=== PATIENT | female | born 1965 ===

== ENCOUNTER 2020-07-25 13:16 | Emergency (ER) | payer OTHER ==
[2020-07-25] MEDS ORDERED: Sodium Chloride 0.9% 10 ML Syringe FLUSH PRN (13:41)
[2020-07-25] MEDS ORDERED: Ondansetron 4 MG/2 ML SDV IV ONE ×2 (13:42→15:12)
[2020-07-25] MEDS ORDERED: Sodium Chloride 0.9% 1,000 ML IV ONE (13:42)
[2020-07-25] MEDS ORDERED: Dexamethasone 4 MG/ML SDV IVPUSH ONE (13:52)
[2020-07-25] MEDS ORDERED: Meclizine 12.5 MG Tab PO ONE ×2 (13:53→15:12)
[2020-07-25 14:34] LABS: ANION GAP 17.1 mEq/L (7-13); CHLORIDE,CL 100 mmol/L (98-107); SODIUM,NA 135 mmol/L (136-145)
--- NOTE | 2020-07-25 15:23 | EDM.PDOC ---
ED HPI GENERAL MEDICAL PROBLEM - General Chief Complaint: Neuro Symptoms/Deficits Stated Complaint: VOMMITING WEAKNESS DIZZIE CANT BARLY WALK Time Seen by Provider: 07/25/20 13:50 Source of Information: Reports: Patient, Family, Old Records, RN, RN Notes Reviewed History Limitations: Reports: No Limitations - History of Present Illness INITIAL COMMENTS - FREE TEXT/NARRATIVE: Pt presents to ER with c/o sudden onset last night of "room spin" dizziness. She did not sleep well, and woke this morning with worsening dizziness and severe nausea and vomiting associated with the recurring dizzy episodes. Pt denies headache. She did feel at times that her vision was not "quite right" and states she looked at her daughter saw her with three eyebrows. Denies Hx of ear problems, ear pain, or drainage. She did feel her left ear had a new and unusual pressure last evening. Denies fever, chills, neck pain, fall, or head injury. Onset: Sudden Duration: Constant Quality: Reports: Other (Denies pain) Severity: Severe Improves with: Reports: Immobilization (Laying still with eyes closed.) Worsens with: Reports: Movement Associated Symptoms: Reports: No Other Symptoms - Related Data Allergies Allergy/AdvReac Type Severity Reaction Status Date / Time No Known Allergies Allergy Verified 07/25/20 13:46 Home Meds: Home Meds Citalopram [Citalopram Hbr] 10 mg PO DAILY 07/23/13 [History] Estradiol/Norethindrone Acet [Estradiol-Noreth 0.5-0.1 MG] 1 tab PO DAILY 07/25/20 [History] lisinopriL [Lisinopril] 20 mg PO DAILY 07/25/20 [History] Past Medical History - Past Health History Medical/Surgical History: Denies Medical/Surgical History HEENT History: Reports: Sinusitis, Other (See Below) Other HEENT History: deviated septum Cardiovascular History: Reports: Hypertension Respiratory History: Reports: None Gastrointestinal History: Reports: None Genitourinary History: Reports: None VP SITE History: Reports: Musculoskeletal History: Reports: None Neurological History: Reports: None Psychiatric History: Reports: Anxiety, Depression Endocrine/Metabolic History: Reports: None Hematologic History: Reports: None Immunologic History: Reports: None Oncologic (Cancer) History: Reports: None Dermatologic History: Reports: None - Infectious Disease History Infectious Disease History: Reports: None - Past Surgical History Head Surgeries/Procedures: Reports: None Social & Family History - Family History Family Medical History: No Pertinent Family History - Tobacco Use Tobacco Use Status *Q: Current Every Day Tobacco User Years of Tobacco use: 30 Packs/Tins Daily: 0.5 - Caffeine Use Caffeine Use: Reports: Coffee, Soda - Recreational Drug Use Recreational Drug Use: No - Living Situation & Occupation Living situation: Reports: , with Family Occupation: Employed ED ROS GENERAL - Review of Systems Review Of Systems: Comprehensive ROS is negative, except as noted in HPI. ED EXAM, DIZZINESS - Physical Exam Exam: See Below Exam Limited By: No Limitations General Appearance: Alert, No Apparent Distress, Anxious, Obese Eye Exam: Bilateral Eye: EOMI, Nystagmus (Lateral gaze), PERRL Nystagmus: worsens with head to R, reproducible, short duration Ears: Normal External Exam, Normal Canal, Hearing Grossly Normal, Normal TMs. No: Hearing Loss, Auricular Erythema, Auricular Tenderness, Mastoid Swelling, Mastoid Tenderness, Canal Discharge, Canal Material, Canal Swelling, TM Bulging, TM Dullness, TM Erythema, TM Blood, TM Fluid, TM Perforation, TM Vesicles Nose: Normal Inspection, Normal Mucosa, No Blood Throat/Mouth: Normal Inspection, Normal Lips, Normal Teeth, Normal Gums, Normal Oropharynx, Normal Voice, No Airway Compromise Head Exam: Atraumatic, Normocephalic Neck: Normal Inspection, Supple, Non-Tender, Full Range of Motion. No: Carotid Bruit, Lymphadenopathy (L), Lymphadenopathy (R) Respiratory/Chest: No Respiratory Distress, Lungs Clear, Normal Breath Sounds, No Accessory Muscle Use, Chest Non-Tender Cardiovascular: Normal Peripheral Pulses, Regular Rate, Rhythm, No Edema, Other (Not orthostatic) GI/Abdominal: Normal Bowel Sounds, Soft, Non-Tender. No: Guarding, Rigid, Rebound Neurological: Alert, Normal Dorsiflexion, CN II-XII Intact (with the exception of lateral gaze nystagums), Normal Plantar Flexion, No Motor/Sensory Deficits, Oriented x 3, Difficulty Walking (due to dizziness) Back Exam: Normal Inspection Extremities: Normal Inspection, Normal Range of Motion, Non-Tender, No Pedal Edema, Normal Capillary Refill Psychiatric: Normal Affect, Anxious Skin Exam: Warm, Dry, Intact, Normal Color, No Rash Course - Vital Signs Last Recorded V/S: Last Vital Signs Temp 97.8 F 07/25/20 13:44 Pulse 101 H 07/25/20 13:44 Resp 20 07/25/20 13:44 BP 196/91 H 07/25/20 13:44 Pulse Ox 94 L 07/25/20 13:44 - Orders/Labs/Meds Orders: Active Orders 24 hr Category Date Time Status Peripheral IV Care [RC] . DIRECTED Care 07/25/20 13:42 Active CULTURE BLOOD [BC] Stat Lab 07/25/20 13:53 Received CULTURE BLOOD [BC] Stat Lab 07/25/20 13:58 Received UA RFX JONO AND CULT IF INDIC [URIN] Stat Lab 07/25/20 13:42 Ordered Sodium Chloride 0.9% [Saline Flush] Med 07/25/20 13:41 Active 10 ml FLUSH ASDIRECTED PRN Blood Culture x2 Reflex Set [OM.PC] Stat Oth 07/25/20 13:41 Ordered Peripheral IV Insertion Adult [OM.PC] Stat Oth 07/25/20 13:41 Ordered Medication Orders Sodium Chloride (Sodium Chloride 0.9% 10 Ml Syringe) 10 ml FLUSH ASDIRECTED PRN PRN Reason: Keep Vein Open Last Admin: 07/25/20 14:06 Dose: 10 ml Documented by: JUSTIN Labs: Laboratory Tests 07/25/20 07/25/20 07/25/20 Range/Units 13:53 13:53 13:53 WBC 9.2 (5.0-10.0) 10^3/uL RBC 3.93 L (4.2-5.4) 10^6/uL Hgb 12.6 (12.0-16.0) g/dL Hct 38.5 (37.0-47.0) % MCV 98.0 D (80-100) fL MCH 32.1 (27.0-34.0) pg MCHC 32.7 L (33.0-35.0) g/dL Plt Count 287 (150-450) 10^3/uL Neut % (Auto) 76.5 H (42.2-75.2) % Lymph % (Auto) 15.1 L (20.5-50.1) % Sully % (Auto) 6.6 (2-8) % Eos % (Auto) 1.3 (1.0-3.0) % Baso % (Auto) 0.5 (0.0-1.0) % Sodium 135 L (136-145) mmol/L Potassium 4.1 (3.5-5.1) mmol/L Chloride 100 (98-107) mmol/L Carbon Dioxide 22 (21-32) mmol/L Anion Gap 17.1 H (7-13) mEq/L BUN 6 L (7-18) mg/dL Creatinine 0.63 (0.55-1.02) mg/dL Est Cr Clr Drug Dosing 85.43 mL/min Estimated GFR (MDRD) > 60 BUN/Creatinine Ratio 9.5 (No establ ref range) Glucose 128 H (74-99) mg/dL Lactic Acid 1.2 (0.4-2.0) mmol/L Calcium 8.6 (8.5-10.1) mg/dL Total Bilirubin 0.2 (0.2-1.0) mg/dL AST 23 (15-37) U/L ALT 28 (14-59) U/L Alkaline Phosphatase 61 (46-116) U/L C-Reactive Protein 0.5 (0.0-0.9) mg/dL Total Protein 7.1 (6.4-8.2) g/dL Albumin 3.4 (3.4-5.0) g/dL Globulin 3.7 Albumin/Globulin Ratio 0.9 Amylase 90 (25-115) U/L Lipase 116 (73-393) U/L Meds: Medications Generic Name Dose Route Start Last Admin Trade Name Freanupama PRN Reason Stop Dose Admin Sodium Chloride 10 ml 07/25/20 13:41 07/25/20 14:06 Sodium Chloride 0.9% 10 Ml Syringe FLUSH 10 ml ASDIRECTED PRN Administration Keep Vein Open Discontinued Medications Generic Name Dose Route Start Last Admin Trade Name Freq PRN Reason Stop Dose Admin Dexamethasone 20 mg 07/25/20 13:52 07/25/20 13:59 Dexamethasone 4 Mg/Ml Sdv IVPUSH 07/25/20 13:53 20 mg ONETIME ONE Administration Diazepam 5 mg 07/25/20 13:52 07/25/20 14:02 Diazepam 10 Mg/2 Ml Syringe IVPUSH 07/25/20 13:53 5 mg ONETIME ONE Administration Diazepam 5 mg 07/25/20 15:12 Diazepam 10 Mg/2 Ml Syringe IVPUSH 07/25/20 15:13 ONETIME ONE Sodium Chloride 1,000 mls @ 999 mls/hr 07/25/20 13:42 07/25/20 13:54 Normal Saline IV 07/25/20 14:42 999 mls/hr .BOLUS ONE Administration Meclizine HCl 25 mg 07/25/20 13:53 07/25/20 14:02 Meclizine 12.5 Mg Tab PO 07/25/20 13:54 25 mg ONETIME ONE Administration Meclizine HCl 25 mg 07/25/20 15:12 Meclizine 12.5 Mg Tab PO 07/25/20 15:13 ONETIME ONE Ondansetron HCl 4 mg 07/25/20 13:42 07/25/20 13:58 Ondansetron 4 Mg/2 Ml Sdv IV 07/25/20 13:43 4 mg ONETIME ONE Administration Ondansetron HCl 4 mg 07/25/20 15:12 Ondansetron 4 Mg/2 Ml Sdv IV 07/25/20 15:13 ONETIME ONE - Radiology Interpretation Free Text/Narrative:: CT Head: Subtle, scattered areas of decreased attenuation throughout the periventricular white matter both cerebral hemispheres, dominant lesion left, parietal lobe anteriorly, ? ischemia vs metastatic? See radiologist report. Image pushed to [employer] PACS. Departure - Departure Time of Disposition: 15:58 Disposition: DC/Tfer to [facility] 02 Condition: Undetermined Clinical Impression: Vertigo, Abnormal CT of brain - Discharge Information *PRESCRIPTION DRUG MONITORING PROGRAM REVIEWED*: Not Applicable *COPY OF PRESCRIPTION DRUG MONITORING REPORT IN PATIENT DRAKE: Not Applicable Forms: ED Department Discharge, Interfacility Transfer [facility] Sepsis Event Note (ED) - Evaluation Sepsis Screening Result: No Definite Risk - Focused Exam Vital Signs: Vital Signs Temp Pulse Resp BP Pulse Ox 07/25/20 13:44 97.8 F 101 H 20 196/91 H 94 L - My Orders Last 24 Hours: My Active Orders 07/25/20 13:41 Sodium Chloride 0.9% [Saline Flush] 10 ml FLUSH ASDIRECTED PRN Blood Culture x2 Reflex Set [OM.PC] Stat Peripheral IV Insertion Adult [OM.PC] Stat 07/25/20 13:42 Peripheral IV Care [RC] . DIRECTED UA RFX JONO AND CULT IF INDIC [URIN] Stat 07/25/20 13:53 CULTURE BLOOD [BC] Stat 07/25/20 13:58 CULTURE BLOOD [BC] Stat - Assessment/Plan Last 24 Hours: My Active Orders 07/25/20 13:41 Sodium Chloride 0.9% [Saline Flush] 10 ml FLUSH ASDIRECTED PRN Blood Culture x2 Reflex Set [OM.PC] Stat Peripheral IV Insertion Adult [OM.PC] Stat 07/25/20 13:42 Peripheral IV Care [RC] . DIRECTED UA RFX JONO AND CULT IF INDIC [URIN] Stat 07/25/20 13:53 CULTURE BLOOD [BC] Stat 07/25/20 13:58 CULTURE BLOOD [BC] Stat
--- NOTE | 2020-07-25 15:28 | CT ---
EXAMINATION: Head wo Cont SEX: Female AGE: 54 years CLINICAL HISTORY: 54-year-old female with nausea, vomiting and new onset vertigo-type dizziness. No previous comparison CT or MRI exams immediately available at this institution. Scan technique: Volume acquisition of data emergency unenhanced CT scan of the head and brain obtained with the patient lying supine on the Siemens multislice scanner [place], [place]. All data archived in the PACS system for storage, reformatting axial/sagittal/coronal planes and study/brain windows). Interpretation: Abnormal. 1. *Subtle, scattered, areas of decreased attenuation throughout the periventricular white matter both cerebral hemispheres (dominant lesion left parietal lobe anteriorly). Differential considerations are ischemic infarct and possible metastasis. Hypertension? Diabetes? Smoker? Known primary malignancy? 2. No surrounding edema or mass effect on the adjacent sulci or underlying ventricular system. 3. No discrete supratentorial or posterior fossa mass lesion. 4. Mirror-image normal ventricular system i.e. no hydrocephalus. No midline shifts. 5. Cerebellum and brainstem unremarkable. No posterior fossa mass lesion. 6. Uniformly thick bony calvarium. Symmetric clear pneumatization of the paranasal and mastoid sinuses. Normal TMJs. 6. No abnormal extracerebral/intracranial epidural or subdural hematoma. 7. No sign of acute intracerebral, intraventricular or subarachnoid bleed. CONCLUSION: Probable multi-infarct ischemic changes both cerebral hemispheres. See discussion above. No intracranial mass or bleed.
== END 2020-07-25 16:09 ==
LOC: DL.ED 13:16
DX: R42 Dizziness and giddiness (principal); R94.02 Abnormal brain scan; I10 Essential (primary) hypertension; Z72.0 Tobacco use; Z79.899 Other long term (current) drug therapy
CPT/HCPCS: 36415; 70450; 80053; 82150; 83605; 83690; 85025; 86140; 87040; 96374; 96375; 96376; 99284; 99285; A9270; J1100; J2405; J3360; J7030

== ENCOUNTER 2024-09-09 10:35 | Emergency (ER) | payer OTHER ==
[2024-09-09] MEDS: Ketorolac 30 MG/ML SDV IM ONE (11:39)
[2024-09-09] MEDS: Orphenadrine 60 MG/2 ML Inj IM ONE (11:39)
[2024-09-09] MEDS: Take Home: Cyclobenzaprine 10 MG Tab, 4 Tab Pack PO ONE (12:06)
== END 2024-09-09 12:14 | disposition home or self-care (01) ==
LOC: DL.ED 10:35
DX: M62.830 Muscle spasm of back (principal); I10 Essential (primary) hypertension; F17.200 Nicotine dependence, unspecified, uncomplicated; Z79.899 Other long term (current) drug therapy
CPT/HCPCS: 96372; 99283; 99284; A9270; J1885; J2360

== ENCOUNTER 2025-01-09 12:11 | Emergency (ER) | payer OTHER ==
[2025-01-09] MEDS ORDERED: Sodium Chloride 0.9% 10 ML Syringe FLUSH PRN (13:14)
[2025-01-09 13:26] LABS: PLATELET COUNT,PLT 344 10^3/uL (150-450); RED BLOOD CELL COUNT 3.96 10^6/uL (4.2-5.4); WHITE BLOOD CELL COUNT,WBC 13.3 10^3/uL (5.0-10.0)
[2025-01-09 13:30] LABS: BASOPHILS PERCENT AUTO 0.3 % (0.0-1.0); EOSINOPHILS PERCENT AUTO 0.5 % (1.0-3.0); LYMPHOCYTES PERCENT AUTO 16.5 % (20.5-50.1); MONOCYTES PERCENT AUTO 6.9 % (2-8); NEUTROPHILS PERCENT AUTO 75.8 % (42.2-75.2)
[2025-01-09 13:42] LABS: GLUCOSE,URINE NEGATIVE (NEGATIVE); OCCULT BLOOD,URINE NEGATIVE (NEGATIVE)
[2025-01-09 13:43] LABS: APPEARANCE,URINE CLEAR (CLEAR)
[2025-01-09 13:46] LABS: INR 0.9 (0.9-1.2); PTT,PARTIAL THROMBOPLSTIN TIME 25.2 SEC (22.0-34.0)
[2025-01-09 13:54] LABS: BLOOD UREA NITROGEN,BUN 12.0 mg/dL (7-18); CARBON DIOXIDE,CO2 24.0 mmol/L (21-32); CREATININE 0.78 mg/dL (0.55-1.02); EST CRCL DRUG DOSING (CG) 65.03 mL/min; GLUCOSE RANDOM 107.0 mg/dL (70-99); POTASSIUM,K 3.8 mmol/L (3.5-5.1); TSH ULTRASENSITIVE 2.91 uIU/mL (0.36-3.74)
[2025-01-09 13:57] LABS: CHLORIDE,CL 97.0 mmol/L (98-107); SODIUM,NA 132.0 mmol/L (136-145)
[2025-01-09 13:58] LABS: ESTIMATED GFR 88.0 mL/min (>=60)
[2025-01-09 14:04] LABS: EPITHELIAL CELLS,URINE MODERATE /HPF (NOT SEEN)
[2025-01-09 14:16] LABS: BAND PERCENT MAN 2 %; LYMPHOCYTES PERCENT MAN 17 % (20-50); MONOCYTES PERCENT MAN 6 % (2-8); SEG NEUTROPHILS PERCENT MAN 75 % (42-75)
[2025-01-09] MEDS: Iopamidol 755 Mg/ML 100 ML Bottle IVPUSH ONE (14:42)
== END 2025-01-09 15:59 | disposition home or self-care (01) ==
LOC: DL.ED 12:11
DX: R20.2 Paresthesia of skin (principal); I16.0 Hypertensive urgency; I10 Essential (primary) hypertension; Z79.899 Other long term (current) drug therapy
CPT/HCPCS: 36415; 70496; 70498; 80048; 81001; 84443; 85025; 85610; 85730; 93005; 99284; Q9967

== ENCOUNTER 2025-03-06 09:23 | Emergency (ER) | payer OTHER ==
[2025-03-06 09:59] LABS: PLATELET COUNT,PLT 407 10^3/uL (150-450); RED BLOOD CELL COUNT 3.75 10^6/uL (4.2-5.4); WHITE BLOOD CELL COUNT,WBC 13.0 10^3/uL (5.0-10.0)
[2025-03-06 10:00] LABS: BASOPHILS PERCENT AUTO 0.3 % (0.0-1.0); EOSINOPHILS PERCENT AUTO 0.5 % (1.0-3.0); LYMPHOCYTES PERCENT AUTO 19.1 % (20.5-50.1); MONOCYTES PERCENT AUTO 6.4 % (2-8); NEUTROPHILS PERCENT AUTO 73.7 % (42.2-75.2)
[2025-03-06 10:13] LABS: A/G RATIO 0.8; ALANINE AMINOTRANSFERASE,ALT 18.0 U/L (14-59); ASPARTATE AMNIOTRANSFERASE,AST 17.0 U/L (15-37); BILIRUBIN TOTAL 0.4 mg/dL (0.2-1.0); BLOOD UREA NITROGEN,BUN 16.0 mg/dL (7-18); CARBON DIOXIDE,CO2 20.0 mmol/L (21-32); CHLORIDE,CL 88.0 mmol/L (98-107); CREATININE 1.1 mg/dL (0.55-1.02); EST CRCL DRUG DOSING (CG) 44.09 mL/min; GLUCOSE RANDOM 121.0 mg/dL (70-99); POTASSIUM,K 2.8 mmol/L (3.5-5.1); PROTEIN TOTAL,TP 7.5 g/dL (6.4-8.2); SODIUM,NA 122.0 mmol/L (136-145)
[2025-03-06 10:15] LABS: EOSINOPHILS PERCENT MAN 1 % (1-3); ESTIMATED GFR 58.0 mL/min (>=60); LYMPHOCYTES PERCENT MAN 20 % (20-50); MONOCYTES PERCENT MAN 4 % (2-8); SEG NEUTROPHILS PERCENT MAN 75 % (42-75)
[2025-03-06] MEDS: Potassium Chloride 10 MEQ Tab.ER PO ONE (10:33)
[2025-03-06 10:54] LABS: FOLIC ACID 13.9 ng/mL (8.6-58.9)
== END 2025-03-06 11:54 | disposition home or self-care (01) ==
LOC: DL.ED 09:23
DX: E87.1 Hypo-osmolality and hyponatremia (principal); R20.0 Anesthesia of skin; R10.9 Unspecified abdominal pain; I10 Essential (primary) hypertension; E86.0 Dehydration; Z79.899 Other long term (current) drug therapy
CPT/HCPCS: 36415; 80053; 82607; 82746; 83735; 85025; 93005; 96360; 99284; A9270; J7030

== ENCOUNTER 2025-03-10 10:08 | Emergency (ER) | payer OTHER ==
[2025-03-10] MEDS: Norepinephrine Bit/D5W Premix 4 MG/250 ML BAG IV SCH (10:25)
[2025-03-10 10:54] LABS: PLATELET COUNT,PLT 313 10^3/uL (150-450); RED BLOOD CELL COUNT 2.46 10^6/uL (4.2-5.4); WHITE BLOOD CELL COUNT,WBC 19.6 10^3/uL (5.0-10.0)
[2025-03-10] MEDS: Iopamidol 612 MG/ML 100 ML Bottle IVPUSH ONE (11:00)
[2025-03-10 11:14] LABS: APPEARANCE,URINE CLEAR (CLEAR); GLUCOSE,URINE NEGATIVE (NEGATIVE); OCCULT BLOOD,URINE NEGATIVE (NEGATIVE)
[2025-03-10 11:17] LABS: INR 0.9 (0.9-1.2)
[2025-03-10 11:18] LABS: ALANINE AMINOTRANSFERASE,ALT 16 U/L (14-59); ASPARTATE AMNIOTRANSFERASE,AST 25 U/L (15-37); BILIRUBIN TOTAL 0.4 mg/dL (0.2-1.0); BLOOD UREA NITROGEN,BUN 14 mg/dL (7-18); CARBON DIOXIDE,CO2 14 mmol/L (21-32); CHLORIDE,CL 99 mmol/L (98-107); CREATININE 1.29 mg/dL (0.55-1.02); GLUCOSE RANDOM 260 mg/dL (70-99); POTASSIUM,K 3.2 mmol/L (3.5-5.1); PROTEIN TOTAL,TP 5.4 g/dL (6.4-8.2); SODIUM,NA 130 mmol/L (136-145)
[2025-03-10 11:19] LABS: D-DIMER QUANTITATIVE > 5000 ng/mL (0-400)
[2025-03-10 11:21] LABS: A/G RATIO 0.69; B-TYPE NATRIURETIC PEPTIDE,BNP 12 pg/ml (0-100); ESTIMATED GFR 48 mL/min (>=60)
[2025-03-10 11:23] LABS: LACTIC ACID 6.2 mmol/L (0.4-2.0)
[2025-03-10 11:30] LABS: BASOPHILS PERCENT AUTO 0.1 % (0.0-1.0); EOSINOPHILS PERCENT AUTO 0.6 % (1.0-3.0); LYMPHOCYTES PERCENT AUTO 17.4 % (20.5-50.1); MONOCYTES PERCENT AUTO 2.6 % (2-8); NEUTROPHILS PERCENT AUTO 79.3 % (42.2-75.2)
[2025-03-10] MEDS: Sodium Chloride 0.9% 10 ML Syringe FLUSH PRN (11:30)
[2025-03-10 11:33] LABS: LYMPHOCYTES PERCENT MAN 19 % (20-50); MONOCYTES PERCENT MAN 8 % (2-8); SEG NEUTROPHILS PERCENT MAN 73 % (42-75)
[2025-03-10] MEDS: Norepinephrine Bit/D5W Premix 4 MG/250 ML BAG ONE (12:06)
[2025-03-10] MEDS: Ondansetron 4 MG/2 ML SDV IVPUSH ONE (13:00)
[2025-03-10] MEDS: metroNIDAZOLE/Normal Saline 500 MG in Premix Bag 1 BAG IV ONE (13:35)
[2025-03-10] MEDS: Ondansetron 4 MG/2 ML SDV ONE (13:36)
== END 2025-03-10 14:41 ==
LOC: DL.ED 10:08
DX: E87.1 Hypo-osmolality and hyponatremia (principal); K92.2 Gastrointestinal hemorrhage, unspecified; I10 Essential (primary) hypertension; Z79.899 Other long term (current) drug therapy
CPT/HCPCS: 36415; 36430; 51702; 70450; 71045; 74177; 80053; 80307; 81003; 82272; 83605; 83735; 83880; 84484; 85025; 85379; 85610; 86850; 86900; 86901; 86920; 86922; 87040; 87045; 87046; 87077; 87186; 87899; 93005; 93010; 96365; 96366; 96368; 96375; 99285; 99291; 99292; J0696; J1836; J2405; J2470; J3374; J7030; J7050; P9016; Q9967